=== PATIENT | male | born 1955 | race African-American/Black ===

== ENCOUNTER 2017-05-05 16:53 | Emergency (ER) | payer MEDICAID ==
[2017-05-05] MEDS ORDERED: ACETAMINOPHEN 325 MG TABLET PO ONE (17:50)
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
--- NOTE | 2017-05-05 18:15 | RADIOLOGY REPORT (SQ) ---
EXAM DESCRIPTION: CHEST PA/LAT COMPLETED DATE/TIME: 05/05/2017 6:08 pm REASON FOR STUDY: fever, cough, crackles LLL COMPARISON: 08/02/2007 EXAM PARAMETERS: NUMBER OF VIEWS: two views TECHNIQUE: Digital Frontal and Lateral radiographic views of the chest acquired. RADIATION DOSE: NA LIMITATIONS: none FINDINGS: LUNGS AND PLEURA: No opacities, masses or pneumothorax. No pleural effusion. MEDIASTINUM AND HILAR STRUCTURES: No masses or contour abnormalities. HEART AND VASCULAR STRUCTURES: Heart normal size. No evidence for failure. BONES: No acute findings. HARDWARE: Spinal stimulator. OTHER: No other significant finding. IMPRESSION: NO SIGNIFICANT RADIOGRAPHIC FINDING IN THE CHEST. TECHNICAL DOCUMENTATION: JOB ID: [id number] [employer]- All Rights Reserved
[2017-05-05 18:29] LABS: APPEARANCE,URINE SLIGHTLY-CLOUDY; BILIRUBIN,URINE NEGATIVE (NEGATIVE); COLOR,URINE YELLOW; GLUCOSE, URINE NEGATIVE (NEGATIVE); KETONES,URINE TRACE mg/dL (NEGATIVE); LEUKOCYTE ESTERASE,URINE NEGATIVE (NEGATIVE); NITRITE,URINE NEGATIVE (NEGATIVE); PROTEIN,URINE 30 mg/dL (NEGATIVE); URINE SPECIFIC GRAVITY 1.025; UROBILINOGEN,URINE NEGATIVE mg/dL (<2.0)
[2017-05-05] MEDS ORDERED: DOXYCYCLINE HYCLATE 100 MG TABLET PO ONE (18:51)
[2017-05-05] MEDS ORDERED: CEFTRIAXONE INJ 1000 MG VIAL IM ONE (18:53)
[2017-05-05] MEDS ORDERED: LIDOCAINE 1% INJ-PF (10 MG/ML) 30 ML SDV INJ ONE (18:53)
[2017-05-05 19:43] VITALS: BP 111/76
== END 2017-05-05 20:00 | disposition home or self-care (01) ==
LOC: ER 16:53
DX: J18.9 Pneumonia, unspecified organism (principal); R50.9 Fever, unspecified; R05 Cough; J02.9 Acute pharyngitis, unspecified; R07.81 Pleurodynia
CPT/HCPCS: 99284; 81001; 71046; J3490

== ENCOUNTER 2019-01-28 14:00 | Emergency (ER) | payer MEDICAID ==
[2019-01-28] MEDS ORDERED: OXYCODONE-ACETAMINOPHEN 5-325 MG TABLET PO ONE (14:03)
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
--- NOTE | 2019-01-28 14:28 | RADIOLOGY REPORT (SQ) ---
EXAM DESCRIPTION: FINGER LEFT COMPLETED DATE/TIME: 01/28/2019 2:18 pm REASON FOR STUDY: 4TH DIGIT DEFORMITY COMPARISON: None. NUMBER OF VIEWS: Three views. TECHNIQUE: AP, lateral, and oblique images acquired of the left fourth finger. LIMITATIONS: None. FINDINGS: MINERALIZATION: Normal. BONES: Posterior dislocation of the PIP joint. No fracture visualized. No worrisome bone lesions. SOFT TISSUES: No soft tissue swelling. No foreign body. OTHER: No other significant finding. IMPRESSION: POSTERIOR DISLOCATION OF THE PIP JOINT OF THE LEFT 4TH FINGER. NO FRACTURE VISUALIZED. TECHNICAL DOCUMENTATION: JOB ID: [id number] [employer]- All Rights Reserved Reading location - IP/workstation name: [email or web address]
[2019-01-28] MEDS ORDERED: LIDOCAINE 1% INJ (10 MG/ML) 10 ML MDV INJ ONE (16:24)
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
[2019-01-28 16:53] VITALS: BP 161/94
[2019-01-28] MEDS ORDERED: IBUPROFEN 600 MG TABLET PO ONE (17:02)
[2019-01-28] MEDS ORDERED: ACETAMINOPHEN 325 MG TABLET PO ONE (17:02)
== END 2019-01-28 17:30 | disposition home or self-care (01) ==
LOC: ER 14:00
DX: S63.285A Dislocation of proximal interphalangeal joint of left ring finger, initial encounter (principal); W20.8XXA Other cause of strike by thrown, projected or falling object, initial encounter; Y99.0 Civilian activity done for income or pay; I10 Essential (primary) hypertension
CPT/HCPCS: 73140; 26775; J3490 ×3; 99283

== ENCOUNTER 2019-05-30 17:37 | Emergency (ER) | payer SELFPAY ==
--- NOTE | 2019-05-30 18:37 | RADIOLOGY REPORT (SQ) ---
EXAM DESCRIPTION: CT CERVICAL SPINE WITHOUT COMPLETED DATE/TIME: 05/30/2019 6:11 pm REASON FOR STUDY: fall; hit ribs on bathtub COMPARISON: None. TECHNIQUE: Axial images acquired through the cervical spine without intravenous contrast. Images re viewed with lung, soft tissue and bone windows. Reconstructed coronal and sagittal MPR images review ed. Images stored on PACS. All CT scanners at this facility use dose modulation, iterative reconstruction, and/or weight based d osing when appropriate to reduce radiation dose to as low as reasonably achievable (ALARA). [facility]: Dose Right [facility]: CareDose [facility]: Dose Right [facility]: Teradose 4D [facility]: Smart Surveying And Mapping (SAM) RADIATION DOSE: CT Rad equipment meets quality standard of care and radiation dose reduction techniq ues were employed. CTDIvol: 21.2 mGy. DLP: 433 mGy-cm. mGy. LIMITATIONS: None. FINDINGS: ALIGNMENT: Anatomic. MINERALIZATION: Normal. VERTEBRAL BODIES: No fractures or dislocation. DISCS: Disc spaces are narrowed from C3 to T1. Marginal osteophytes are present. FACETS, LATERAL MASSES, POSTERIOR ELEMENTS: No fractures. No dislocation. No acute findings. HARDWARE: None in the spine. VISUALIZED RIBS: No fractures. LUNG APICES AND SOFT TISSUES: No significant or acute findings. OTHER: No other significant finding. IMPRESSION: Degenerative disc disease and spondylosis. No acute finding. TECHNICAL DOCUMENTATION: JOB ID: [id number] Quality ID # [id number]: Final reports with documentation of one or more dose reduction techniques (e.g., Au tomated exposure control, adjustment of the mA and/or kV according to patient size, use of iterative reconstruction technique) 2010 [employer]- All Rights Reserved Reading location - IP/workstation name: [email or web address]
--- NOTE | 2019-05-30 18:39 | RADIOLOGY REPORT (SQ) ---
EXAM DESCRIPTION: RIBS LEFT W/PA CHEST COMPLETED DATE/TIME: 05/30/2019 6:04 pm REASON FOR STUDY: fall; rib pain COMPARISON: None. TECHNIQUE: Frontal view of the chest and additional views of the left ribs acquired. NUMBER OF VIEWS: Five views LIMITATIONS: None. FINDINGS: FRONTAL CXR: No pneumothorax. No pleural effusion. No atelectasis or infiltrates. RIBS: No displaced rib fractures. No lytic or blastic bony lesions. OTHER: No other significant finding. IMPRESSION: NO PNEUMOTHORAX. NO DISPLACED RIB FRACTURES. COMMENT: SITE OF TRAUMA/COMPLAINT MARKED/STAMP COMPLETED: NO. TECHNICAL DOCUMENTATION: JOB ID: [id number] 2010 [employer]- All Rights Reserved Reading location - IP/workstation name: [email or web address]
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
--- NOTE | 2019-05-30 21:05 | RADIOLOGY REPORT (SQ) ---
CLINICAL INDICATION: fall, landed on left side, r/o splenic laceration. . TECHNIQUE: Contrast enhanced spiral axial CT imaging was obtained of the abdomen and pelvis with multiplanar reconstructions. This exam was performed according to our departmental dose-optimization program, which includes automated exposure control, adjustment of the mA and/or kV according to patient size and/or use of iterative reconstruction techniques. Additional delayed phase imaging COMPARISON: None. CORRELATION: None. FINDINGS: Abdomen: The lung bases demonstrate dependent atelectasis left greater than right. Tiny adjacent pleural reaction.. The heart is of normal size. No significant pleural fluid. No pericardial fluid. No pneumothorax seen in the visualized portion of the chest. The liver is fatty infiltrated. The gallbladder is nondistended without inflammatory change. The pancreas is unremarkable. The spleen is unremarkable. The adrenals are unremarkable. The kidneys appear grossly normal without evidence of urolithiasis or hydronephrosis. There is no evidence of free air. No free fluid. No bulky adenopathy. Abdominal aorta is nonaneurysmal. Artifact from a neurostimulator Pelvis: The bowel is nonobstructed. The bowel is unopacified with oral contrast. Pelvic contents are unremarkable. The appendix is normal. Visualized bones demonstrate a mildly displaced fracture of the left posterior 11th rib. Nondisplaced fracture of the left posterior lateral 10th rib nondisplaced fracture of the left posterior ninth rib. IMPRESSION: Fractures of the left ninth 10th and 11th ribs. Minimal adjacent pleural reaction and left basilar atelectasis.. No acute intra-abdominal process. No solid organ injury.
[2019-05-30 21:09] LABS: APPEARANCE,URINE CLEAR; BILIRUBIN,URINE NEGATIVE (NEGATIVE); COLOR,URINE YELLOW; GLUCOSE, URINE NEGATIVE (NEGATIVE); KETONES,URINE 20 mg/dL (NEGATIVE); LEUKOCYTE ESTERASE,URINE NEGATIVE (NEGATIVE); NITRITE,URINE NEGATIVE (NEGATIVE); PROTEIN,URINE NEGATIVE (NEGATIVE); URINE SPECIFIC GRAVITY 1.025; UROBILINOGEN,URINE NEGATIVE mg/dL (<2.0)
[2019-05-30 21:35] LABS: ABSOLUTE BASOPHILS # (AUTO) 0.1 10^3/uL (0.0-0.2); ABSOLUTE EOSINOPHILS # (AUTO) 0.2 10^3/uL (0.0-0.6); ABSOLUTE LYMPHOCYTES (AUTO) 1.2 10^3/uL (0.5-4.7); ABSOLUTE MONOCYTES (AUTO) 0.7 10^3/uL (0.1-1.4); ABSOLUTE NEUT (AUTO) 3.9 10^3/uL (1.7-8.2); BASOPHILS % (AUTO) 0.8 % (0-2); EOSINOPHILS % (AUTO) 3.7 % (0-6); HEMATOCRIT 40.9 % (37.9-51.0); HEMOGLOBIN 13.6 g/dL (13.5-17.0); LYMPHOCYTES % (AUTO) 19.3 % (13-45); MEAN CORPUSCULAR HEMOGLOBIN 31.3 pg (27.0-33.4); MEAN CORPUSCULAR HGB CONC 33.4 g/dL (32.0-36.0); MEAN CORPUSCULAR VOLUME 94 fl (80-97); MONOCYTES % (AUTO) 11.7 % (3-13); PLATELET COUNT 201 10^3/uL (150-450); RED BLOOD COUNT 4.37 10^6/uL (4.35-5.55); RED CELL DISTRIBUTION WIDTH 13.6 % (11.5-14.0); SEGMENTED NEUTROPHILS % (AUTO) 64.5 % (42-78); TOTAL CELLS COUNTED % (AUTO) 100 %; WHITE BLOOD COUNT 6.1 10^3/uL (4.0-10.5)
[2019-05-30 21:44] LABS: INTERNATIONAL RATION (INR) 1.04; PROTHROMBIN TIME 13.7 SEC (11.4-15.4)
[2019-05-30 21:45] LABS: PARTIAL THROMBOPLASTIN TIME 27.6 SEC (23.5-35.8)
[2019-05-30 21:50] LABS: ALBUMIN 3.9 g/dL (3.5-5.0); ALKALINE PHOSPHATASE 51 U/L (38-126); ANION GAP 6 (5-19); ASPARTATE AMINO TRANSFERASE 29 U/L (17-59); BILIRUBIN,TOTAL 0.5 mg/dL (0.2-1.3); BLOOD UREA NITROGEN 15 mg/dL (7-20); CALCIUM 8.9 mg/dL (8.4-10.2); CARBON DIOXIDE 26 mmol/L (22-30); CHLORIDE 104 mmol/L (98-107); GLUCOSE 82 mg/dL (75-110); POTASSIUM 4.3 mmol/L (3.6-5.0); TOTAL PROTEIN 6.3 g/dL (6.3-8.2)
[2019-05-30] MEDS ORDERED: OXYCODONE-ACETAMINOPHEN 5-325 MG TABLET PO ONE (22:39)
[2019-05-30] MEDS ORDERED: LIDOCAINE 5% (700 MG) TRANSDERMAL ADH..PATCH TP ONE (22:39)
[2019-05-30 23:14] VITALS: BP 158/106
== END 2019-05-30 23:25 | disposition home or self-care (01) ==
LOC: ER 17:37
DX: S22.42XA Multiple fractures of ribs, left side, initial encounter for closed fracture (principal); M25.512 Pain in left shoulder; R10.12 Left upper quadrant pain; R10.812 Left upper quadrant abdominal tenderness; M54.9 Dorsalgia, unspecified; W18.2XXA Fall in (into) shower or empty bathtub, initial encounter; Y92.009 Unspecified place in unspecified non-institutional (private) residence as the place of occurrence of the external cause; M50.30 Other cervical disc degeneration, unspecified cervical region; M47.812 Spondylosis without myelopathy or radiculopathy, cervical region; J98.11 Atelectasis; I10 Essential (primary) hypertension
CPT/HCPCS: 36415; 72125; 74177; 80053; 81001; 85025; 85610; 85730; 99284

== ENCOUNTER 2019-08-02 12:33 | Emergency (ER) | payer OTHER ==
[2019-08-02] MEDS ORDERED: DIPH/PERTUSS(ACELL)/TETANUS VAC/PF 0.5 ML SYR (>=10YO) IM ONE (12:48)
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
[2019-08-02] MEDS ORDERED: OXYCODONE-ACETAMINOPHEN 5-325 MG TABLET PO ONE (12:51)
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
[2019-08-02] MEDS ORDERED: LIDOCAINE 1% INJ-PF (10 MG/ML) 30 ML SDV INJ ONE (13:58)
--- NOTE | 2019-08-02 14:18 | RADIOLOGY REPORT (SQ) ---
EXAM DESCRIPTION: FEMUR LEFT IMAGES COMPLETED DATE/TIME: 08/02/2019 2:07 pm REASON FOR STUDY: laceration COMPARISON: None. NUMBER OF VIEWS: Two views. TECHNIQUE: Two radiographic images acquired of the left femur to include hip and knee in at least on e projection. LIMITATIONS: None. FINDINGS: MINERALIZATION: Normal. BONES: No acute fracture. No worrisome bone lesions. SOFT TISSUES: No obvious swelling or foreign body. OTHER: No other significant finding. IMPRESSION: NEGATIVE STUDY OF THE LEFT FEMUR. NO RADIOGRAPHIC EVIDENCE OF ACUTE INJURY. TECHNICAL DOCUMENTATION: JOB ID: [id number] 2010 [employer]- All Rights Reserved Reading location - IP/workstation name: [email or web address]
[2019-08-02 16:54] VITALS: BP 139/91
== END 2019-08-02 16:30 | disposition home or self-care (01) ==
LOC: ER 12:33
DX: S31.114A Laceration without foreign body of abdominal wall, left lower quadrant without penetration into peritoneal cavity, initial encounter (principal); V18.4XXA Pedal cycle driver injured in noncollision transport accident in traffic accident, initial encounter; Y93.55 Activity, bike riding; Z23 Encounter for immunization; I10 Essential (primary) hypertension
CPT/HCPCS: 99283; 90471; 73552; 90715; 12032; J3490